=== PATIENT | male | born 1965 | race Caucasian/White ===

== ENCOUNTER → 2020-10-09 09:38 | Outpatient (CLI) | payer OTHER, SELFPAY ==
[2020-10-09 10:52] LABS: COVID19 -Nasal RAPID Negative (Negative)
== END ==
PROVIDERS: PCP Nurse Practitioner Family; Visit Provider Surgery
DX: Z01.812 Encounter for preprocedural laboratory examination (principal); Z20.822 Contact with and (suspected) exposure to COVID-19
CPT/HCPCS: 87635; C9803

== ENCOUNTER 2020-10-10 06:43 | Day surgery (SDC) | payer OTHER, SELFPAY ==
--- NOTE | 2020-10-10 | PATH_ITS ---
[facility] Accession Number: [id number] . 01 Material submitted: . PART A: colon - 55CM COLON POLYP PART B: colon - 45CM COLON POLYP PART C: colon - 40CM COLON POLYP PART D: rectum - RECTAL POLYP 15CM . 01 Clinical history: . C: POLYP X2 . 02 Diagnosis: A. Colon, Polyp 55 cm, Biopsy: Benign lymphoid aggregate with mild surface hyperplastic-type changes. Negative for dysplasia and malignancy. . B. Colon, Polyp 45 cm, Biopsy: Tubular adenoma. . C. Colon, Polyp 40 cm x2, Biopsies: Tubular adenoma. Hyperplastic polyp. . D. Rectum, Polyp 15 cm, Biopsy: Hyperplastic polyp. [facility] 10/15/2020 1400 Local . 02 Electronically signed: . Patricia Perdomo MD, Pathologist NPI- [id number] . 01 Gross description: . Part A: 55CM COLON POLYP: Received in formalin is 1 fragment(s) of salguero, soft tissue measuring 0.4 x 0.2 x 0.2 cm submitted entirely in 1 cassette(s) Part B: 45CM COLON POLYP: Received in formalin is 1 fragment(s) of salguero, soft tissue measuring 0.7 x 0.6 x 0.6 cm submitted entirely in 1 cassette(s) Part C: 40CM COLON POLYP: Received in formalin are 2 fragment(s) of salguero, soft tissue measuring 0.2 x 0.2 x 0.2 cm to 0.5 x 0.4 x 0.4 cm submitted entirely in 1 cassette(s) Part D: RECTAL POLYP 15CM: Received in formalin is 1 fragment(s) of salguero, soft tissue measuring 0.3 x 0.3 x 0.2 cm submitted entirely in 1 cassette(s) /[place] 10/13/2020 1733 Local . 02 Pathologist provided ICD-10: D12.6 . 02 CPT . 816174, [id number], [id number], [id number] Performed at: 01 [facility] [address] [id number] MD Juan Hsu MD Phone: [phone] Performed at: 02 [facility] [address] [place], [place] [id number] MD Patricia Perdomo MD Phone: [phone]
[2020-10-10 07:23] VITALS: BP 175/96; PULSE 73; RESP 16; TEMP 36.2; O2SAT 96; BMI 36.6
--- NOTE | 2020-10-10 07:34 | P.OP.ENDO_ITS ---
Operative Date/Time/Diagnoses Date of procedure: 10/10/20 Time of procedure: 07:35 Pre-op diagnosis: Positive cologuard Post-op diagnosis: other (Multiple adenomatous/precancerous appearing polyps between 5 mm to 2 cm in size) Procedure & Clinicians Study performed: Colonoscopy Procedural sedation performed by the endoscopist Polypectomy x5 with cold snare, hot snare, and Jumbo forceps Same procedure as scheduled: Yes Indications: Positive cologuard test Surgeon: Yohana Cabello Procedure Notes SCOAP/Timeout: Performed Procedure in detail: The patient was brought to the room and placed in left lateral decubitus position with all bony prominences padded. A time-out was performed and then the patient was given procedural sedation starting with 4 mg of Versed and 100 mcg of fentanyl. Total of 6 mg of Versed and 100 micro g of fentanyl were given for the entire procedure. Vitals were monitored throughout the procedure and remained stable. Once adequately sedated, the procedure was begun. A rectal exam was performed revealing no abnormalities. The colonoscope was then introduced to the rectum and advanced to the cecum in the usual fashion. The cecum was identified by the appendiceal orifice, the mucosal tri- fold, and the ileocecal valve. The scope was then retracted while rotating side to side and examining each mucosal fold. Five polyps were found and removed. One at 55 cm with Jumbo forceps which was 5 mm in size, 1 at 45 cm with cold snare which was about 1 cm in size, 1 at 40 cm with hot snare which was about 2 cm in size, 1 at 40 cm with Jumbo forceps which was 5 mm in size, and 1 in the r ectum at 15 cm with Jumbo forceps which was 5 mm in size. At the conclusion of the procedure retroflexion was performed and small grade 1-2 internal hemorrhoids without stigmata of bleeding were seen. The scope was then withdrawn from the rectum the procedure was concluded. The patient tolerated the procedure well and was transferred to the PACU in stable condition. Scope withdrawal time: 27 Sedation minutes: 32 Findings: polyp (Multiple adenomatous/precancerous appearing polyps) Specimen(s): other (Polyp from 55 cm, 45 cm, 2 from 40 cm, and 1 from 15 cm in the rectum) Complications: none Impression: Multiple precancerous/adenomatous appearing polyps Post-procedure Recommendations: Colonscopy in 3 years (Due to multiple adenomatous polyps) Follow up: as needed Disposition: PACU
--- NOTE | 2020-10-10 07:34 | PM.PREOP ---
Pre-operative Note COVID-19 COVID-19 status: Negative Result date/Date tested (Pos, Neg/Pending): 10/09/20 Interval Note History & Physical reviewed/Exam performed by Physician: Yes Changes to H&P: No ASA Class (for procedural sedation): II
[2020-10-10] MEDS: fentaNYL 250 MCG/5 ML INJ IV (07:40)
[2020-10-10] MEDS: MIDAZOLAM 5 MG/5 ML VIAL IV (07:54)
[2020-10-10 08:17] VITALS: BP 143/82; PULSE 73; RESP 12; TEMP 36.6; O2SAT 97
[2020-10-10] MEDS: SODIUM CHLORIDE 0.9% 1,000 ML 200 ML IV (08:19)
[2020-10-10 08:22] VITALS: BP 102/63; PULSE 76; RESP 16; O2SAT 97
--- NOTE | 2020-10-10 08:24 | SUR.PHASEI ---
Dr. Cabello talked with pt at bedside.
[2020-10-10 08:27] VITALS: BP 127/79; PULSE 79; RESP 12; TEMP 36.4; O2SAT 98
== END 2020-10-10 08:40 | disposition home or self-care (01) ==
PROVIDERS: PCP Nurse Practitioner Family; Referring Provider Nurse Practitioner Family; Visit Provider Surgery
PROC: 0DJD8ZZ Inspection of Lower Intestinal Tract, Via Natural or Artificial Opening Endoscopic (ICD-10-PCS; CPT 45378; principal; 2020-10-10 07:45)
DX: R19.5 Other fecal abnormalities (principal); K64.0 First degree hemorrhoids; E66.9 Obesity, unspecified; Z68.39 Body mass index [BMI] 39.0-39.9, adult; I10 Essential (primary) hypertension; E78.5 Hyperlipidemia, unspecified; D12.6 Benign neoplasm of colon, unspecified
CPT/HCPCS: 45385; 45380; 99152; 99153; J2250; J3010

== ENCOUNTER → 2024-02-14 07:36 | Outpatient (CLI) | payer OTHER, SELFPAY ==
--- NOTE | 2024-02-14 07:38 | DI.RAD.S_ITS ---
PROCEDURE: XR LUMBAR SPINE MIN 4V INDICATIONS: low back pain TECHNIQUE: 5 views of the lumbar spine were acquired, including bilateral oblique views. COMPARISON: None. FINDINGS: Bones: 5 nonrib-bearing vertebrae are present. There is trace retrolisthesis of L5 on S1. Mild foraminal narrowing at L5-S1. No vertebral body compression fractures. No suspicious bony lesions. Anterior osteophytes are most prominent at L3. Soft tissues: Overlying bowel gas pattern is normal. No suspicious soft tissue calcifications. Oblique images: No pars defects. IMPRESSION: No acute bony abnormality. Mild foraminal narrowing at L5-S1. Dictated by: Amy Moreno M.D. on 02/14/2024 at 15:53 Approved by: Amy Moreno M.D. on 02/14/2024 at 15:54
== END ==
PROVIDERS: PCP Nurse Practitioner Family; Referring Provider Anesthesiology; Visit Provider Anesthesiology
DX: M48.07 Spinal stenosis, lumbosacral region (principal); M54.50 Low back pain, unspecified
CPT/HCPCS: 72110

== ENCOUNTER → 2024-02-18 13:58 | Outpatient (CLI) | payer OTHER, SELFPAY ==
--- NOTE | 2024-02-18 13:59 | DI.MRI.S_ITS ---
PROCEDURE: MR LUMBAR SPINE WO CON INDICATIONS: Lumbar radiculopathy TECHNIQUE: Noncontrast sagittal T1 spin echo and T2 fast echo, sagittal STIR, and T2 fast spin echo through the lumbar spine. In cases with scoliosis, additional coronal T2 fast spin echo may be performed. COMPARISON: [facility], CR, XR LUMBAR SPINE MIN 4V, 02/14/2024, 7:54. FINDINGS: Image quality: Excellent. Alignment and Curvature: There is normal bony alignment. Bone Marrow: Marrow is of normal overall signal. No acute vertebral body compression fractures. Spinal Cord: Conus medullaris terminates at the L1-L2 level. Visualized cord demonstrates normal signal and size. Paraspinous Soft Tissues: No paravertebral masses. T12-L1: Normal appearance. L1-L2: Normal appearance. L2-L3: Normal appearance. L3-L4: Normal appearance. L4-L5: Left paracentral disc protrusion with large mildly high signal extruded disc fragment obliterating the left L5 nerve root in the left lateral recess and impinging on the left S1 nerve root in the thecal sac. The disc fragment measures 15 x 14 x 8 mm. Reference sagittal T2 image 12 of series 4 and axial T2 image 28 of series 7. Patent foramina. L5-S1: Annulus tear plus minimal central posterior disc protrusion. Facet hypertrophy. No canal stenosis or foraminal stenosis. IMPRESSION: 1. The significant level is L4-L5. There is a left paracentral disc protrusion with a large, likely relatively acute high signal extruded disc fragment. This described meant obliterates the left L5 nerve root in the left lateral recess and impinges on the left S1 nerve root in the thecal sac. 2. There is annulus tear plus minimal central posterior disc protrusion at L5-S1 without canal stenosis. Dictated by: Derian Stubbs M.D. on 02/20/2024 at 10:22 Approved by: Derian Stubbs M.D. on 02/20/2024 at 10:26
== END ==
PROVIDERS: PCP Nurse Practitioner Family; Referring Provider Anesthesiology; Visit Provider Anesthesiology
DX: M51.16 Intervertebral disc disorders with radiculopathy, lumbar region (principal); M47.27 Other spondylosis with radiculopathy, lumbosacral region
CPT/HCPCS: 72148

== ENCOUNTER 2024-03-07 09:41 | Outpatient (CLI) | payer OTHER, SELFPAY ==
[2024-03-07] VITALS (8 sets, daily range): BP systolic 128–197; BP diastolic 62–86; PULSE 63–72; RESP 11–18; TEMP 36.9; O2SAT 94–98
[2024-03-07] MEDS: MIDAZOLAM 2 MG/2 ML VIAL IV (10:15)
--- NOTE | 2024-03-07 10:15 | DI.RAD.S_ITS ---
PROCEDURE: PAIN L INTERLAMINAR/CAUDAL INJ INDICATIONS: radiculopathy COMPARISON: None. FINDINGS: Fluoroscopic spot filming was performed to verify placement of spinal needles at the labeled right L5-S1 level(s), as labeled on the films. Appropriate location(s) of the needle tip(s) was confirmed by injection of iodinated contrast. IMPRESSION: Needle and contrast localization overlying right L5-S1. Dictated by: Amy Moreno M.D. on 03/07/2024 at 17:20 Approved by: Amy Moreno M.D. on 03/07/2024 at 17:20
[2024-03-07] MEDS: iopamidoL 15 ML VIAL 3 ML INJ (10:19)
[2024-03-07] MEDS: DEXAMETHASONE 10 MG/ML VIAL INJ (10:19)
--- NOTE | 2024-03-07 10:28 | P.PCN_ITS ---
Date/Time/Diagnoses Date of procedure: 03/07/24 Time of procedure: 10:15 Procedure Notes Physician: Dave Mckenna Total Fluoroscopy time (seconds): 11 Total sedation minutes: 9 Procedure in detail & Post-procedure care: L5-S1 Interlaminar Epidural Steroid Injection Indications: Eligio is presenting for treatment of lumbar radiculopathy with low back and leg pain. Preoperative diagnosis: Lumbar radiculopathy Postoperative diagnosis: Same Focused Examination: Ax3 Mood and affect are normal Vital Signs: VSS ASA: 2 Consent: Following review of allergies and potential side effects/complications, including, but not necessarily limited to, infection, allergic reaction, local tissue breakdown, stroke, temporary or permanent nerve injury, paralysis, and possible , the patient indicated that they understood and agreed to proce ed.? An informed consent document was signed by the patient, witnessed by a nurse and placed in the patient's chart.? Additionally, other treatment options including medications and physical therapy were reviewed with the patient. All questions were answered. Site was then marked. Anesthesia: After review of previous anesthetic history and IV conscious sedation, the patient was deemed safe to proceed with today's procedure with IV conscious sedation. IV sedation was accomplished with midazolam 2 mg administered by the RN after order by Dr. Mckenna. Sedation was titrated to patient comfort during the course of the procedure. Patient remained responsive to all verbal commands. Position: Prone Monitoring: NIBP, Pulse oximetry, 3 lead EKG Needle used: 18 G 3.5? Tuohy Contrast: Isovue 300M Injectate: Dexamethasone 10 mg with 1% lidocaine 2 mL Technique: The skin was prepped with chloraprep and then draped in a sterile fashion. Time out was performed as per protocol. Oxygen applied via NC. Skin and subcutaneous structures of the needle entry site was then infiltrated with 3 mL of lidocaine 1%. Under AP, lateral and contralateral oblique fluoroscopic control, the Tuohy needle was guided into the L5-S1 epidural space. The space was accessed with loss of resistance technique. Isovue 300M was then injected and the spread was consistent with the epidural space. There was no evidence for intravascular or intrathecal uptake. After negative aspiration, the above- mentioned injectate was then slowly administered and the needle withdrawn. The patient expressed no unusual discomfort or paresthesias during the injection. Band-Aids applied to injection sites. EBL: less than 1 ml Complications: None Post Procedure: Patient was taken to the recovery and monitored. The patient was provided a Pain Log to continue to record the patient's response to the target- specific procedure prior to the patient's follow-up visit with the referring physician. Patient was stable upon discharge. Detailed post procedure instructions were provided. Patient was asked to call in the event of worsening pain, fever, weakness, numbness or bladder or bowel incontinence.
== END 2024-03-07 10:48 | disposition home or self-care (01) ==
LOC: RAD 09:41
PROVIDERS: PCP Nurse Practitioner Family; Referring Provider Anesthesiology; Visit Provider Anesthesiology
DX: M54.16 Radiculopathy, lumbar region (principal)
CPT/HCPCS: 62323; J1100; J2250